=== PATIENT | female | born 1995 | race Caucasian/White ===

== ENCOUNTER 2021-02-17 10:03 | Day surgery (SDC) | payer BC ==
[2021-02-10 12:35] VITALS: BMI 37.8
[2021-02-17] MEDS ORDERED: cefOXitin Sodium/Dextrose 2 GM/50 ML BAG ONE (10:33)
[2021-02-17] MEDS ORDERED: Bupivacaine PF 0.5% 30 ML VIAL ONE (11:21)
[2021-02-17] MEDS ORDERED: EPINEPHrine 1 MG/ML AMP ONE (11:21)
[2021-02-17] MEDS ORDERED: Scopolamine 1.5 mg/72 hour Patch ONE (11:35)
[2021-02-17] MEDS ORDERED: Midazolam HCl 2 mg/2 ml Vial ONE (11:53)
[2021-02-17] MEDS ORDERED: Fentanyl 100 MCG/2 ML VIAL ONE ×3 (12:25→13:48)
[2021-02-17] MEDS ORDERED: Lidocaine 1% PF 5 ML VIAL ONE (12:28)
[2021-02-17] MEDS ORDERED: Glycopyrrolate 0.2 MG/ML 5 ML SYRINGE ONE (12:28)
[2021-02-17] MEDS ORDERED: Dexamethasone 20 MG/5 ML VIAL ONE (12:28)
[2021-02-17] MEDS ORDERED: Ondansetron PF 4 MG/2 ML Vial ONE (12:28)
[2021-02-17] MEDS ORDERED: PROPOFOL 200 MG/20 ML VIAL ONE (12:28)
[2021-02-17] MEDS ORDERED: HYDROcodone/Acetaminophen 5/325 mg Tablet ONE (14:39)
== END 2021-02-17 15:47 | disposition home or self-care (01) ==
LOC: SDC 10:03
PROVIDERS: ATTEND Surgery
PROC: 0FT44ZZ Resection of Gallbladder, Percutaneous Endoscopic Approach (ICD-10-PCS; principal; 2021-02-17)
DX: K81.1 Chronic cholecystitis (principal); E28.2 Polycystic ovarian syndrome; E66.9 Obesity, unspecified; Z68.37 Body mass index [BMI] 37.0-37.9, adult; Z79.3 Long term (current) use of hormonal contraceptives; Z79.899 Other long term (current) drug therapy
CPT/HCPCS: 88304; C1713; J0171; J0694; J1100; J2250; J2405; J2704; J3010; S0020